=== PATIENT | female | born 1960 | race Caucasian/White ===

== ENCOUNTER 2016-10-22 16:37 | Emergency (ER) | payer MEDICAID ==
[~2016-10-22] VITALS: Ht 162.6 cm; Wt 60.0 kg
[~2016-10-22 16:37] MED LIST: 1-ME1LIQ PO; CIPR500T2 PO; HYDR-3533 PO; KCL20 PO; LISI20 PO; LORTA5 PO; METR-1 PO; OMEP20TA39 PO; PERI8.6T PO
[2016-10-22 16:39] VITALS: BP 119/57; PULSE 90; RESP 14; TEMP 98.4; O2SAT 95
--- NOTE | 2016-10-22 19:57 | PD ---
HPI Chief Complaint: Abdominal Pain Time Seen by Provider: 19:53 Travel History International Travel<30 days: No Contact w/Intl Traveler<30days: No Traveled to known affect area: No History of Present Illness HPI 36-year-old female presents to the emergency department for evaluation of abdominal pain for 3 weeks. Patient states she has a history of diverticulitis as well as admitted in July. 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 She states that she had bowel movements through her vagina July. She reports this happened again 2 weeks ago, but is not currently having. However, she states she gets "air" through her vagina. Patient reports right sided abdominal pain. She reports associated nausea and 3 axes of diarrhea today. She denies any blood in her stool. Patient has had subjective fevers at home. No chest pain or shortness of breath. She does report history of hysterectomy, oophorectomy, appendectomy. Patient does state that she saw a business continuity planning director, Dr. Cantu, today in [place], but he did not take her insurance and she is referred to the emergency department. Her primary care physician is Dr. Pruitt. [facility] Past Medical History Anxiety: Yes Cardiovascular Problems: Yes Diminished Hearing: No Hiatal Hernia: Yes Hypertension: Yes Psychiatric: Yes Seizures: Yes Ulcer: Yes : 3 Para: 2 Miscarriage: 0 : 1 Ovarian Cysts: Yes Past Surgical History Appendectomy: Yes (1982) Gynecologic Surgery: Yes (right ovary removed) Hysterectomy: Yes Social History Alcohol Use: Yes (social) Tobacco Use: Yes (09/08) Substance Use: No Allergies-Medications (Allergen,Severity, Reaction): Coded Allergies: Codeine (Verified Allergy, Severe, Nausea/Vomiting, 10/22/16) Reported Meds & Prescriptions Reported Meds & Active Scripts Active Acetaminophen Extra Strength (Acetaminophen) 500 Mg Tab 500 Mg PO Q6H PRN Bactrim DS (Sulfamethoxazole-Trimethoprim) 800-160 Mg Tab 1 Tab PO BID Reported Omeprazole 20 Mg Tab 20 Mg PO DAILY Lisinopril 5 Mg Tab 5 Mg PO DAILY Trazodone (Trazodone HCl) 50 Mg Tab 50 Mg PO HS Celebrex (Celecoxib) 100 Mg Cap 100 Mg PO BID [isuprel] 1 Tab PO DAILY Review of Systems Except as stated in HPI: all other systems reviewed are Neg Physical Exam Narrative GENERAL: Well-developed well-nourished female patient, ambulatory. Afebrile. SKIN: Warm and dry. HEAD: Normocephalic. Atraumatic. EYES: No scleral icterus. No injection or drainage. NECK: Supple, trachea midline. No JVD or lymphadenopathy. CARDIOVASCULAR: Regular rate and rhythm without murmurs, gallops, or rubs. RESPIRATORY: Breath sounds equal bilaterally. No accessory muscle use. Lungs sounds are clear to auscultation. GASTROINTESTINAL: Abdomen soft and nondistended. Patient has tenderness over right upper, right lower quadrant, and suprapubic region. MUSCULOSKELETAL: No cyanosis, or edema. BACK: Nontender without obvious deformity. No CVA tenderness. Data Data Last Documented VS Vital Signs Date Time Temp Pulse Resp B/P Pulse Ox O2 Delivery O2 Flow Rate FiO2 10/22/16 23:30 76 18 140/93 97 Room Air 10/22/16 16:39 98.4 Orders Complete Blood Count With Diff (10/22/16 19:52) Comprehensive Metabolic Panel (10/22/16 19:52) Lipase (10/22/16 19:52) Urinalysis - C+S If Indicated (10/22/16 19:52) Ketorolac Inj (Toradol Inj) (10/22/16 23:45) Ondansetron Inj (Zofran Inj) (10/22/16 23:45) Sodium Chlor 0.9% 1000 Ml Inj (Ns 1000 M (10/22/16 23:45) Ceftriaxone Inj (Rocephin Inj) (10/22/16 23:45) Ct Abd/Pel W Iv Contrast(Rout) (10/23/16 ) Iohexol 350 Inj (Omnipaque 350 Inj) (10/23/16 01:17) Labs Laboratory Tests Test 10/22/16 10/22/16 20:00 20:05 White Blood Count 10.5 TH/MM3 Red Blood Count 4.17 MIL/MM3 Hemoglobin 13.1 GM/DL Hematocrit 38.2 % Mean Corpuscular Volume 91.8 FL Mean Corpuscular Hemoglobin 31.5 PG Mean Corpuscular Hemoglobin 34.3 % Concent Red Cell Distribution Width 13.1 % Platelet Count 269 TH/MM3 Mean Platelet Volume 9.0 FL Neutrophils (%) (Auto) 58.2 % Lymphocytes (%) (Auto) 29.7 % Monocytes (%) (Auto) 8.5 % Eosinophils (%) (Auto) 2.9 % Basophils (%) (Auto) 0.7 % Neutrophils # (Auto) 6.1 TH/MM3 Lymphocytes # (Auto) 3.1 TH/MM3 Monocytes # (Auto) 0.9 TH/MM3 Eosinophils # (Auto) 0.3 TH/MM3 Basophils # (Auto) 0.1 TH/MM3 CBC Comment DIFF FINAL Differential Comment Sodium Level 134 MEQ/L Potassium Level 3.9 MEQ/L Chloride Level 104 MEQ/L Carbon Dioxide Level 21.7 MEQ/L Anion Gap 8 MEQ/L Blood Urea Nitrogen 22 MG/DL Creatinine 0.83 MG/DL Estimat Glomerular Filtration 71 ML/MIN Rate Random Glucose 104 MG/DL Calcium Level 8.7 MG/DL Total Bilirubin 0.5 MG/DL Aspartate Amino Transf 16 U/L (AST/SGOT) Alanine Aminotransferase 23 U/L (ALT/SGPT) Alkaline Phosphatase 70 U/L Total Protein 7.9 GM/DL Albumin 3.8 GM/DL Lipase 158 U/L Urine Color YELLOW Urine Turbidity CLEAR Urine pH 5.0 Urine Specific [place] 1.016 Urine Protein NEG mg/dL Urine Glucose (UA) NEG mg/dL Urine Ketones NEG mg/dL Urine Occult Blood NEG Urine Nitrite NEG Urine Bilirubin NEG Urine Urobilinogen LESS THAN 2.0 MG/DL Urine Leukocyte Esterase LARGE Urine RBC LESS THAN 1 /hpf Urine WBC 3 /hpf Urine Squamous Epithelial 1 /hpf Cells Urine Bacteria RARE /hpf Microscopic Urinalysis Comment CULT NOT INDICATED MDM Medical Decision Making Medical Screen Exam Complete: Yes Emergency Medical Condition: Yes Medical Record Reviewed: Yes Differential Diagnosis Acute diverticulitis versus cholelithiasis versus gastroenteritis versus UTI versus pyelonephritis Narrative Course 36-year-old female presents to the emergency department for evaluation of abdominal pain for 3 weeks. CBC, CMP, lipase, UA are ordered. Workup is initiated in triage. Once a medical bed becomes available, patient will be transferred and care assumed by that provider. Scripts Acetaminophen (Acetaminophen Extra Strength)500 Mg [id number] Mg PO Q6H PRN (PAIN SCALE 1 TO 4) #20 TAB Ref 0 Prov:Kim Dugan DO 10/23/16 Sulfamethoxazole-Trimethoprim (Bactrim DS)800-160 Mg Tab1 Tab PO BID #14 TAB Ref 0 Prov:Kim Dugan DO 10/23/16 Tracy Bee Oct 22, 2016 19:57
[2016-10-22 20:30] LABS: AUTOMATED NEUTROPHIL # 6.1 TH/MM3 (1.8-7.7); BASOPHIL # 0.1 TH/MM3 (0-0.2); BASOPHIL % 0.7 % (0.0-2.0); EOSINOPHIL # 0.3 TH/MM3 (0-0.4); EOSINOPHIL % 2.9 % (0.0-4.0); HEMATOCRIT 38.2 % (35.0-46.0); HEMO FLAGS DIFF FINAL; LYMPH % 29.7 % (9.0-44.0); LYMPHOCYTE # 3.1 TH/MM3 (1.0-4.8); MEAN CELL VOLUME 91.8 FL (80.0-100.0); MEAN CORPUSCULAR HEMOGLOBIN 31.5 PG (27.0-34.0); MEAN CORPUSCULAR HGB CONC 34.3 % (32.0-36.0); MONO % 8.5 % (0.0-8.0); NEUT % 58.2 % (16.0-70.0); PLATELET COUNT 269 TH/MM3 (150-450); RED BLOOD COUNT 4.17 MIL/MM3 (4.00-5.30); RED CELL DISTRIBUTION WIDTH 13.1 % (11.6-17.2); WHITE BLOOD COUNT 10.5 TH/MM3 (4.0-11.0)
[2016-10-22 20:54] LABS: BACTERIA, URINE RARE /hpf; BLOOD, URINE NEG (NEG); COMMENT (UR) CULT NOT INDICATED; CULTURE IF INDICATED CULT NOT INDICATED; GLUCOSE,URINE NEG (NEG); KETONE, URINE NEG (NEG); NITRITE,URINE NEG (NEG); SQUAMOUS EPITHELIAL CELL URINE 1 /hpf (0-5); URINE COLOR YELLOW (YELLW/STRAW)
[2016-10-22 21:02] LABS: ANION GAP 8 MEQ/L (5-15); AST (GOT) 16 U/L (15-37); BICARBONATE 21.7 MEQ/L (21.0-32.0); BLOOD UREA NITROGEN 22 MG/DL (7-18); CHLORIDE 104 MEQ/L (98-107); GLOMERULAR FILTRATION RATE 71 ML/MIN (>89); POTASSIUM 3.9 MEQ/L (3.5-5.1); SODIUM (NA) 134 MEQ/L (136-145)
[2016-10-22 21:05] LABS: ALKALINE PHOSPHATASE 70 U/L (45-117); ALT (GPT) 23 U/L (10-53); TOTAL BILIRUBIN ADULT 0.5 MG/DL (0.2-1.0)
[2016-10-22 22:39] VITALS: BP 142/76; PULSE 78; RESP 18; O2SAT 97
[2016-10-22 23:30] VITALS: BP 140/93; PULSE 76; RESP 18; O2SAT 97
[2016-10-22] MEDS ORDERED: LISI-515 PO (23:35)
[2016-10-22] MEDS ORDERED: ISOPROTERENOL PO (23:35)
[2016-10-22] MEDS ORDERED: CELE100C PO (23:35)
[2016-10-22] MEDS ORDERED: LISI-519 PO (23:35)
[2016-10-22] MEDS ORDERED: TRAZ50TA12 PO (23:35)
[2016-10-22] MEDS ORDERED: OMEP20TA PO (23:36)
--- NOTE | 2016-10-22 23:39 | PD ---
HPI Chief Complaint: Abdominal Pain Time Seen by Provider: 23:24 Travel History International Travel<30 days: No Contact w/Intl Traveler<30days: No Traveled to known affect area: No History of Present Illness HPI 56yo F with PMH of hysterectomy presents to the ED with c/o abdominal pain for 3 weeks. States it is mainly right sided from right flank to right abdomen. + NBNB vomiting and nonbloody diarrhea for a few days. Denies any fever, chest pain, sob, vaginal bleeding or discharge. +Increased urinary frequency. Pt went to see GI as outpatient today and will have a colonoscopy as outpatient. States she was sent here for further evaluation of her abdominal pain. PFSH Past Medical History Anxiety: Yes Cardiovascular Problems: Yes Diminished Hearing: No Hiatal Hernia: Yes Hypertension: Yes Psychiatric: Yes Immunizations Current: Yes Seizures: Yes Ulcer: Yes : 3 Para: 2 Miscarriage: 0 : 1 Ovarian Cysts: Yes Past Surgical History Appendectomy: Yes (1982) Gynecologic Surgery: Yes (right ovary removed) Hysterectomy: Yes (partial) Social History Alcohol Use: Yes (social) Tobacco Use: Yes (09/08) Substance Use: No Allergies-Medications (Allergen,Severity, Reaction): Coded Allergies: Codeine (Verified Allergy, Severe, Nausea/Vomiting, 10/22/16) Reported Meds & Prescriptions Reported Meds & Active Scripts Active Reported Omeprazole 20 Mg Tab 20 Mg PO DAILY Lisinopril 5 Mg Tab 5 Mg PO DAILY Trazodone (Trazodone HCl) 50 Mg Tab 50 Mg PO HS Celebrex (Celecoxib) 100 Mg Cap 100 Mg PO BID [isuprel] 1 Tab PO DAILY Review of Systems Except as stated in HPI: all other systems reviewed are Neg Physical Exam Narrative GENERAL: 56yo F not in distress. SKIN: Warm and dry. HEAD: Atraumatic. Normocephalic. NECK: Trachea midline. No JVD. CARDIOVASCULAR: Regular rate and rhythm. No murmur appreciated. RESPIRATORY: No accessory muscle use. Clear to auscultation. Breath sounds equal bilaterally. GASTROINTESTINAL: Abdomen soft, +TTP RLQ. No rebound tenderness or guarding. BACK: +CVA tenderness on right. MUSCULOSKELETAL: No obvious deformities. No clubbing. No cyanosis. No edema. NEUROLOGICAL: Awake and alert. No obvious cranial nerve deficits. Motor grossly within normal limits. Normal speech. PSYCHIATRIC: Appropriate mood and affect; insight and judgment normal. Data Data Last Documented VS Vital Signs Date Time Temp Pulse Resp B/P Pulse Ox O2 Delivery O2 Flow Rate FiO2 10/22/16 23:30 76 18 140/93 97 Room Air 10/22/16 16:39 98.4 Orders Complete Blood Count With Diff (10/22/16 19:52) Comprehensive Metabolic Panel (10/22/16 19:52) Lipase (10/22/16 19:52) Urinalysis - C+S If Indicated (10/22/16 19:52) Ketorolac Inj (Toradol Inj) (10/22/16 23:45) Ondansetron Inj (Zofran Inj) (10/22/16 23:45) Sodium Chlor 0.9% 1000 Ml Inj (Ns 1000 M (10/22/16 23:45) Ceftriaxone Inj (Rocephin Inj) (10/22/16 23:45) Ct Abd/Pel W Iv Contrast(Rout) (10/23/16 ) Iohexol 350 Inj (Omnipaque 350 Inj) (10/23/16 01:17) Labs Laboratory Tests Test 10/22/16 10/22/16 20:00 20:05 White Blood Count 10.5 TH/MM3 Red Blood Count 4.17 MIL/MM3 Hemoglobin 13.1 GM/DL Hematocrit 38.2 % Mean Corpuscular Volume 91.8 FL Mean Corpuscular Hemoglobin 31.5 PG Mean Corpuscular Hemoglobin 34.3 % Concent Red Cell Distribution Width 13.1 % Platelet Count 269 TH/MM3 Mean Platelet Volume 9.0 FL Neutrophils (%) (Auto) 58.2 % Lymphocytes (%) (Auto) 29.7 % Monocytes (%) (Auto) 8.5 % Eosinophils (%) (Auto) 2.9 % Basophils (%) (Auto) 0.7 % Neutrophils # (Auto) 6.1 TH/MM3 Lymphocytes # (Auto) 3.1 TH/MM3 Monocytes # (Auto) 0.9 TH/MM3 Eosinophils # (Auto) 0.3 TH/MM3 Basophils # (Auto) 0.1 TH/MM3 CBC Comment DIFF FINAL Differential Comment Sodium Level 134 MEQ/L Potassium Level 3.9 MEQ/L Chloride Level 104 MEQ/L Carbon Dioxide Level 21.7 MEQ/L Anion Gap 8 MEQ/L Blood Urea Nitrogen 22 MG/DL Creatinine 0.83 MG/DL Estimat Glomerular Filtration 71 ML/MIN Rate Random Glucose 104 MG/DL Calcium Level 8.7 MG/DL Total Bilirubin 0.5 MG/DL Aspartate Amino Transf 16 U/L (AST/SGOT) Alanine Aminotransferase 23 U/L (ALT/SGPT) Alkaline Phosphatase 70 U/L Total Protein 7.9 GM/DL Albumin 3.8 GM/DL Lipase 158 U/L Urine Color YELLOW Urine Turbidity CLEAR Urine pH 5.0 Urine Specific [place] 1.016 Urine Protein NEG mg/dL Urine Glucose (UA) NEG mg/dL Urine Ketones NEG mg/dL Urine Occult Blood NEG Urine Nitrite NEG Urine Bilirubin NEG Urine Urobilinogen LESS THAN 2.0 MG/DL Urine Leukocyte Esterase LARGE Urine RBC LESS THAN 1 /hpf Urine WBC 3 /hpf Urine Squamous Epithelial 1 /hpf Cells Urine Bacteria RARE /hpf Microscopic Urinalysis Comment CULT NOT INDICATED MDM Medical Decision Making Medical Screen Exam Complete: Yes Emergency Medical Condition: Yes Interpretation(s) Laboratory Tests Test 10/22/16 10/22/16 20:00 20:05 White Blood Count 10.5 TH/MM3 (4.0-11.0) Red Blood Count 4.17 MIL/MM3 (4.00-5.30) Hemoglobin 13.1 GM/DL (11.6-15.3) Hematocrit 38.2 % (35.0-46.0) Mean Corpuscular Volume 91.8 FL (80.0-100.0) Mean Corpuscular Hemoglobin 31.5 PG (27.0-34.0) Mean Corpuscular Hemoglobin 34.3 % Concent (32.0-36.0) Red Cell Distribution Width 13.1 % (11.6-17.2) Platelet Count 269 TH/MM3 (150-450) Mean Platelet Volume 9.0 FL (7.0-11.0) Neutrophils (%) (Auto) 58.2 % (16.0-70.0) Lymphocytes (%) (Auto) 29.7 % (9.0-44.0) Monocytes (%) (Auto) 8.5 % (0.0-8.0) Eosinophils (%) (Auto) 2.9 % (0.0-4.0) Basophils (%) (Auto) 0.7 % (0.0-2.0) Neutrophils # (Auto) 6.1 TH/MM3 (1.8-7.7) Lymphocytes # (Auto) 3.1 TH/MM3 (1.0-4.8) Monocytes # (Auto) 0.9 TH/MM3 (0-0.9) Eosinophils # (Auto) 0.3 TH/MM3 (0-0.4) Basophils # (Auto) 0.1 TH/MM3 (0-0.2) CBC Comment DIFF FINAL Differential Comment Sodium Level 134 MEQ/L (136-145) Potassium Level 3.9 MEQ/L (3.5-5.1) Chloride Level 104 MEQ/L (98-107) Carbon Dioxide Level 21.7 MEQ/L (21.0-32.0) Anion Gap 8 MEQ/L (5-15) Blood Urea Nitrogen 22 MG/DL (7-18) Creatinine 0.83 MG/DL (0.50-1.00) Estimat Glomerular Filtration 71 ML/MIN (>89) Rate Random Glucose 104 MG/DL (74-106) Calcium Level 8.7 MG/DL (8.5-10.1) Total Bilirubin 0.5 MG/DL (0.2-1.0) Aspartate Amino Transf 16 U/L (15-37) (AST/SGOT) Alanine Aminotransferase 23 U/L (10-53) (ALT/SGPT) Alkaline Phosphatase 70 U/L (45-117) Total Protein 7.9 GM/DL (6.4-8.2) Albumin 3.8 GM/DL (3.4-5.0) Lipase 158 U/L (73-393) Urine Color YELLOW (YELLW/STRAW) Urine Turbidity CLEAR (CLEAR) Urine pH 5.0 (5.0-8.5) Urine Specific [place] 1.016 (1.002-1.035) Urine Protein NEG mg/dL (NEG-TRACE) Urine Glucose (UA) NEG mg/dL (NEG) Urine Ketones NEG mg/dL (NEG) Urine Occult Blood NEG (NEG) Urine Nitrite NEG (NEG) Urine Bilirubin NEG (NEG) Urine Urobilinogen LESS THAN 2.0 MG/DL (LESS THAN 2.0) Urine Leukocyte Esterase LARGE (NEG) Urine RBC LESS THAN 1 /hpf (0-3) Urine WBC 3 /hpf (0-5) Urine Squamous Epithelial 1 /hpf (0-5) Cells Urine Bacteria RARE /hpf (NONE) Microscopic Urinalysis Comment CULT NOT INDICATED Last Impressions Abdomen/Pelvis CT 10/23/16 0000 Signed Impressions: Service Date/Time: October 01:11 - CONCLUSION: 1. No evidence of acute abdominal or pelvic process. No masses are identified. 2. Diverticulosis without evidence of diverticulitis. 3. Jose Thao MD Differential Diagnosis Pyelonephritis vs. nephrolithiasis vs. appendicitis vs. gastroenteritis Narrative Course 56yo F with abdominal pain and urinary complaints. Pt is well appearing with mild ttp on abdominal exam. Labs reviewed, no leukocytosis. Creatinine normal. BUN mildly elevated. UA showed large leukocyte. Rare bacteria. Pt given NS IVF, zofran, and toradol 30mg IV. CTa/p showed no evidence of acute abdominal or pelvic process. No masses are identified. Pt reevaluated at bedside, abdominal pain resolved. Abd: soft, NT/ND. Return precautions given. Diagnosis Primary Impression: UTI (urinary tract infection) Qualified Code: N39.0 - Urinary tract infection without hematuria, site unspecified Patient Instructions: General Instructions Departure Forms: Tests/Procedures Additional Instructions: Please follow up with your PMD in 3-7 days. Return to the ED if your symptoms worsen. Med/Other Pt SpecificInfo: Prescription(s) given Scripts Acetaminophen (Acetaminophen Extra Strength)500 Mg [id number] Mg PO Q6H PRN (PAIN SCALE 1 TO 4) #20 TAB Ref 0 Prov:RitchieKim 10/23/16 Sulfamethoxazole-Trimethoprim (Bactrim DS)800-160 Mg Tab1 Tab PO BID #14 TAB Ref 0 Prov:Kim Dugan DO 10/23/16 Disposition: 01 DISCHARGE HOME Condition: Stable Kim Dugan Oct 22, 2016 23:39
[2016-10-22] MEDS ORDERED: SODIUM CHLOR 0.9% 1000 ML INJ 1,000 ML IV ONE (23:45)
[2016-10-22] MEDS ORDERED: ONDANSETRON HCL 4 MG/2 ML VIAL IV PUSH ONE (23:45)
[2016-10-22] MEDS ORDERED: KETOROLAC TROMETHAMINE 30 MG/ML (IVP) VIAL IV PUSH ONE (23:45)
[2016-10-22] MEDS ORDERED: cefTRIAXone INJ 1,000 MG in SODIUM CHLORIDE 0.9% INJ 100 ML IV ONE (23:45)
[2016-10-23] MEDS ORDERED: IOHEXOL 350 MG/ML 10 ML VIAL (for RAD DIAG) IV ONE (01:17)
--- NOTE | 2016-10-23 01:45 | RADRPT ---
EXAM DATE/TIME: 10/23/2016 01:11 [facility] COMPARISON: CT ABDOMEN & PELVIS W CONTRAST, June 04, 2016, 13:55. INDICATIONS : Abdomen pain with nausea and vomiting. IV CONTRAST: 93 cc Omnipaque 350 (iohexol) IV ORAL CONTRAST: No oral contrast ingested. RADIATION DOSE: 8.13 CTDIvol (mGy) MEDICAL HISTORY : Cardiovascular disease. Hypertension. Diverticulitis.Hiatal Hernia SURGICAL HISTORY : Appendectomy. Hysterectomy. ENCOUNTER: Initial ACUITY: 1 day PAIN SCALE: 7/10 LOCATION: Right abdomen TECHNIQUE: Volumetric scanning of the abdomen and pelvis was performed. Using automated exposure control and ad justment of the mA and/or kV according to patient size, radiation dose was kept as low as reasonably achievable to obtain optimal diagnostic quality images. FINDINGS: There is subsegmental atelectasis in the both bases. Coronary artery calcifications are present. The gallbladder and pancreas are unremarkable. No intrahepatic or extrahepatic ductal dilatation is seen . The adrenal glands and kidneys appear normal bilaterally. No hydronephrosis or mass lesions are donovan ntified. A small fat containing midline hernias present measuring 10 mm. Examination of the pelvis demonstrates no evidence of free fluid or pelvic mass. No abnormally enlarg ed inguinal or retroperitoneal lymph nodes are present. The bladder is unremarkable. There is diverti culosis without evidence of diverticulitis. CONCLUSION: 1. No evidence of acute abdominal or pelvic process. No masses are identified. 2. Diverticulosis without evidence of diverticulitis. 3. Jose Thao MD on October 23, 2016 at 1:40 Board Certified Radiologist. This report was verified electronically.
[2016-10-23] MEDS ORDERED: BACT800T5 PO (02:22)
[2016-10-23] MEDS ORDERED: ACET500T36 PO (02:22)
== END 2016-10-23 02:58 | disposition home or self-care (01) ==
LOC: NEPC 16:37
DX: N39.0 Urinary tract infection, site not specified (principal)
CPT/HCPCS: 74177; 80053; 81001; 83690; 85025; 96374; 96375; 99284; J0696; J1885; J2405; J7030; Q9967

== ENCOUNTER 2017-06-20 14:12 | Emergency (ER) | payer MEDICAID ==
[~2017-06-20] VITALS: Ht 162.6 cm; Wt 73.0 kg
[~2017-06-20 14:12] MED LIST changes: -1-ME1LIQ PO; +ACET500T36 PO; +BACT800T5 PO; +CELE100C PO; -CIPR500T2 PO; -HYDR-3533 PO; +ISOPROTERENOL PO; -KCL20 PO; +LISI-519 PO; -LISI20 PO; -LORTA5 PO; -METR-1 PO; +OMEP20TA PO; -OMEP20TA39 PO; -PERI8.6T PO; +TRAZ50TA12 PO
[2017-06-20 14:17] VITALS: BP 171/96; PULSE 87; RESP 18; TEMP 98.5; O2SAT 99
[2017-06-20 14:21] VITALS: BP 171/96; PULSE 88; RESP 18; TEMP 98.5; O2SAT 98
[2017-06-20] MEDS ORDERED: SODIUM CHLOR 0.9% 1000 ML INJ 1,000 ML IV SCH (14:23)
[2017-06-20 14:26] VITALS: O2SAT 99
[2017-06-20] MEDS ORDERED: SODIUM CHLORIDE 0.9% FLUSH 10 ML FLUSH IV FLUSH PRN (14:30)
[2017-06-20] MEDS ORDERED: MORPHINE SULFATE 4 MG/ML INJ IV PUSH ONE (14:30)
[2017-06-20] MEDS ORDERED: ONDANSETRON HCL 4 MG/2 ML VIAL IVP ONE (14:30)
--- NOTE | 2017-06-20 14:31 | PD ---
HPI Chief Complaint: Abdominal Pain Time Seen by Provider: 14:13 Travel History International Travel<30 days: No Contact w/Intl Traveler<30days: No Traveled to known affect area: No History of Present Illness HPI 56-year-old female presents to the emergency department via EMS for evaluation of abdominal pain. Patient states she's had intermittent abdominal pain, vomiting, constipation for the past 4 months. She saw a primary care physician Dr. Pruitt, who referred her to a business services administrator, Dr. Porter in [place]. She has an appointment later this month, but states she cannot take the pain. Patient states the pain is currently 8/10 in the epigastric, periumbilical region. She states that this typically where and how high her pain will get. She states she vomited once this morning. She also reports that she has been constipated, has noticed small amount of bright red blood in her stool. She also states that when she vomited, she noticed some mucus with specks of blood. Patient denies any fevers or chills. She denies any chest pain. She reports the pain will make her short of breath. 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 No other surgeries. She denies any urinary symptoms. She reports history of GERD, hypertension, diverticulitis. Patient does state that she drinks "one tallboy" every evening. She smokes one pack of cigarettes daily. No illicit drug use. PFSH Past Medical History Anxiety: Yes Cardiovascular Problems: Yes Diminished Hearing: No Hiatal Hernia: Yes Hypertension: Yes Psychiatric: Yes Immunizations Current: Yes Seizures: Yes Ulcer: Yes ?: Not : 3 Para: 2 Miscarriage: 0 : 1 Ovarian Cysts: Yes Past Surgical History Appendectomy: Yes (1982) Gynecologic Surgery: Yes (right ovary removed) Hysterectomy: Yes Social History Alcohol Use: Yes (social) Tobacco Use: Yes (09/08) Substance Use: No Allergies-Medications (Allergen,Severity, Reaction): Coded Allergies: codeine (Unverified Allergy, Severe, Nausea/Vomiting, 04/21/17) Reported Meds & Prescriptions Reported Meds & Active Scripts Active Acetaminophen Extra Strength (Acetaminophen) 500 Mg Tab 500 Mg PO Q6H PRN Bactrim DS (Sulfamethoxazole-Trimethoprim) 800-160 Mg Tab 1 Tab PO BID Reported Omeprazole 20 Mg Tab 20 Mg PO DAILY Lisinopril 5 Mg Tab 5 Mg PO DAILY Trazodone (Trazodone HCl) 50 Mg Tab 50 Mg PO HS Celebrex (Celecoxib) 100 Mg Cap 100 Mg PO BID [isuprel] 1 Tab PO DAILY Review of Systems Except as stated in HPI: all other systems reviewed are Neg Physical Exam Narrative GENERAL: Well-nourished, well-developed female patient, ambulatory. Afebrile. SKIN: Focused skin assessment warm/dry. Large midline abdominal scar noted. HEAD: Normocephalic. Atraumatic. EYES: No scleral icterus. No injection or drainage. NECK: Supple, trachea midline. No JVD or lymphadenopathy. CARDIOVASCULAR: Regular rate and rhythm without murmurs, gallops, or rubs. Bilateral radial and pedal pulses are 2+ RESPIRATORY: Breath sounds equal bilaterally. No accessory muscle use. Lungs sounds are clear to auscultation. GASTROINTESTINAL: Abdomen soft and nondistended. Patient has tenderness over the epigastric and periumbilical region. MUSCULOSKELETAL: No cyanosis, or edema. BACK: Nontender without obvious deformity. No CVA tenderness. RECTAL EXAM: No masses or tenderness, stool is brown. Hemoccult is negative. This exam was done with RN at bedside. Data Data Last Documented VS Vital Signs Date Time Temp Pulse Resp B/P (MAP) Pulse Ox O2 Delivery O2 Flow Rate FiO2 06/20/17 15:01 18 06/20/17 14:26 99 Room Air 06/20/17 14:21 98.5 88 Orders Orders Complete Blood Count With Diff (06/20/17 14:23) Comprehensive Metabolic Panel (06/20/17 14:23) Lipase (06/20/17 14:23) Prothrombin Time / Inr (Pt) (06/20/17 14:23) Act Partial Throm Time (Ptt) (06/20/17 14:23) Urinalysis - C+S If Indicated (06/20/17 14:23) Ct Abd/Pel W Iv Contrast(Rout) (06/20/17 14:23) Iv Access Insert/Monitor (06/20/17 14:23) Ecg Monitoring (06/20/17 14:23) Oximetry (06/20/17 14:23) Morphine Inj (Morphine Inj) (06/20/17 14:30) Ondansetron Inj (Zofran Inj) (06/20/17 14:30) Sodium Chlor 0.9% 1000 Ml Inj (Ns 1000 M (06/20/17 14:23) Sodium Chloride 0.9% Flush (Ns Flush) (06/20/17 14:30) Electrocardiogram (06/20/17 14:23) Chest, Single Ap (06/20/17 14:23) Iohexol 350 Inj (Omnipaque 350 Inj) (06/20/17 15:44) Labs Laboratory Tests Test 06/20/17 14:30 06/20/17 14:55 White Blood Count 8.0 TH/MM3 Red Blood Count 3.88 MIL/MM3 Hemoglobin 12.3 GM/DL Hematocrit 36.3 % Mean Corpuscular Volume 93.6 FL Mean Corpuscular Hemoglobin 31.6 PG Mean Corpuscular Hemoglobin Concent 33.8 % Red Cell Distribution Width 13.0 % Platelet Count 249 TH/MM3 Mean Platelet Volume 8.2 FL Neutrophils (%) (Auto) 52.0 % Lymphocytes (%) (Auto) 34.9 % Monocytes (%) (Auto) 8.1 % Eosinophils (%) (Auto) 3.9 % Basophils (%) (Auto) 1.1 % Neutrophils # (Auto) 4.1 TH/MM3 Lymphocytes # (Auto) 2.8 TH/MM3 Monocytes # (Auto) 0.6 TH/MM3 Eosinophils # (Auto) 0.3 TH/MM3 Basophils # (Auto) 0.1 TH/MM3 CBC Comment DIFF FINAL Differential Comment Prothrombin Time 10.1 SEC Prothromb Time International Ratio 0.9 RATIO Activated Partial Thromboplast Time 24.3 SEC Blood Urea Nitrogen 15 MG/DL Creatinine 0.65 MG/DL Random Glucose 86 MG/DL Total Protein 7.7 GM/DL Albumin 3.5 GM/DL Calcium Level 8.0 MG/DL Alkaline Phosphatase 65 U/L Aspartate Amino Transf (AST/SGOT) 39 U/L Alanine Aminotransferase (ALT/SGPT) 42 U/L Total Bilirubin 0.1 MG/DL Sodium Level 138 MEQ/L Potassium Level 4.5 MEQ/L Chloride Level 106 MEQ/L Carbon Dioxide Level 25.3 MEQ/L Anion Gap 7 MEQ/L Estimat Glomerular Filtration Rate 94 ML/MIN Lipase 130 U/L Urine Color YELLOW Urine Turbidity CLEAR Urine pH 6.0 Urine Specific [place] 1.019 Urine Protein NEG mg/dL Urine Glucose (UA) NEG mg/dL Urine Ketones NEG mg/dL Urine Occult Blood NEG Urine Nitrite NEG Urine Bilirubin NEG Urine Urobilinogen LESS THAN 2.0 MG/DL Urine Leukocyte Esterase NEG Urine WBC LESS THAN 1 /hpf Urine Mucus FEW /lpf Microscopic Urinalysis Comment CULT NOT INDICATED MDM Medical Decision Making Medical Screen Exam Complete: Yes Emergency Medical Condition: Yes Medical Record Reviewed: Yes Interpretation(s) chest x-ray - CONCLUSION: 1. No acute cardiopulmonary disease. CT abdomen/pelvis- CONCLUSION: 1. No evidence of acute abdominal or pelvic process. No masses are identified. 2. Diverticulosis without evidence of diverticulitis. Differential Diagnosis Diverticulitis versus pancreatitis versus cholecystitis versus UTI versus small bowel obstruction versus chronic abdominal pain versus GI bleed Narrative Course 56-year-old female presents to the emergency department for evaluation of abdominal pain, nausea, vomiting, diarrhea that has been ongoing for 4 months. She does have an appointment upcoming with a business services administrator. She also reports shortness of breath due to pain. EKG, CBC, CMP, lipase, PTT, PT/INR, UA are ordered and pending. CT abdomen/pelvis with IV contrast is ordered and pending. Chest x-ray is ordered and pending. IV access established. Patient is given normal saline 1 L IV bolus, morphine 4 mg IV, Zofran 4 mg IV. EKG shows sinus rhythm, no acute ST changes. CBC shows no acute abnormalities. CMP shows no acute abnormality. Lipase is 130. Coags shows no acute abnormality. UA is negative for acute infection. CT abdomen/pelvis shows No evidence of acute abdominal or pelvic process. No masses are identified; Diverticulosis without evidence of diverticulitis.. Chest x-ray shows no acute cardiopulmonary disease. I discussed results with patient. She takes omeprazole at home. I'll discharge her prescription for Zofran. She is encouraged to keep her upcoming appointment gastroenterology. Patient has had these symptoms ongoing for 4 months. She verbalizes agreement to this. Diagnosis Primary Impression: Abdominal pain Qualified Codes: R10.13 - Epigastric pain Referrals: Hydrometallurgical Engineer Primary Care Physician Patient Instructions: Abdominal Pain (ED), General Instructions Additional Instructions: Take Zofran as directed as needed for nausea/vomiting. Continue taking omeprazole. Follow-up with business services administrator and primary care physician. Return to the emergency department for any acute worsening of symptoms. Med/Other Pt SpecificInfo: Prescription(s) given Scripts Ondansetron Odt (Ondansetron Odt) 4 Mg Tab 4 MG SL Q6HR Y for Nausea/Vomiting, #16 TAB 0 Refills Prov: Tracy Bee 06/20/17 Disposition: 01 DISCHARGE HOME Condition: Stable Tracy Bee Jun 20, 2017 14:31
[2017-06-20 14:47] LABS: AUTOMATED NEUTROPHIL # 4.1 TH/MM3 (1.8-7.7); BASOPHIL # 0.1 TH/MM3 (0-0.2); BASOPHIL % 1.1 % (0.0-2.0); EOSINOPHIL # 0.3 TH/MM3 (0-0.4); EOSINOPHIL % 3.9 % (0.0-4.0); HEMATOCRIT 36.3 % (35.0-46.0); HEMO FLAGS DIFF FINAL; LYMPH % 34.9 % (9.0-44.0); LYMPHOCYTE # 2.8 TH/MM3 (1.0-4.8); MEAN CELL VOLUME 93.6 FL (80.0-100.0); MEAN CORPUSCULAR HEMOGLOBIN 31.6 PG (27.0-34.0); MEAN CORPUSCULAR HGB CONC 33.8 % (32.0-36.0); MONO % 8.1 % (0.0-8.0); PLATELET COUNT 249 TH/MM3 (150-450); RED BLOOD COUNT 3.88 MIL/MM3 (4.00-5.30)
[2017-06-20 15:01] VITALS: RESP 18
[2017-06-20 15:11] LABS: ALKALINE PHOSPHATASE 65 U/L (45-117); ALT (GPT) 42 U/L (10-53); ANION GAP 7 MEQ/L (5-15); AST (GOT) 39 U/L (15-37); BICARBONATE 25.3 MEQ/L (21.0-32.0); BLOOD UREA NITROGEN 15 MG/DL (7-18); CHLORIDE 106 MEQ/L (98-107); GLOMERULAR FILTRATION RATE 94 ML/MIN (>89); POTASSIUM 4.5 MEQ/L (3.5-5.1); SODIUM (NA) 138 MEQ/L (136-145); TOTAL BILIRUBIN ADULT 0.1 MG/DL (0.2-1.0)
[2017-06-20 15:22] LABS: APTT (PATIENT) 24.3 SEC (24.3-30.1); INTERNATIONAL NORMALIZED RATIO 0.9 RATIO; PROTHROMBIN TIME - PATIENT 10.1 SEC (9.8-11.6)
[2017-06-20 15:23] LABS: BLOOD, URINE NEG (NEG); COMMENT (UR) CULT NOT INDICATED; CULTURE IF INDICATED CULT NOT INDICATED; GLUCOSE,URINE NEG (NEG); KETONE, URINE NEG (NEG); MUCUS URINE FEW /lpf (OCC); NITRITE,URINE NEG (NEG); URINE COLOR YELLOW (YELLW/STRAW)
[2017-06-20] MEDS ORDERED: IOHEXOL 350 MG/ML 10 ML VIAL (for RAD DIAG) IVCONTRAST ONE (15:44)
--- NOTE | 2017-06-20 16:10 | RADRPT ---
EXAM DATE/TIME: 06/20/2017 14:50 [facility] COMPARISON: No previous studies available for comparison. INDICATIONS : Short of breath, vomiting, and constipation for three days. MEDICAL HISTORY : Cardiovascular disease. Hypertension. Diverticulitis.Hiatal Hernia SURGICAL HISTORY : Appendectomy. Hysterectomy ENCOUNTER: Initial ACUITY: 3 days PAIN SCORE: 8/10 LOCATION: Bilateral Abdomen FINDINGS: A single view of the chest demonstrates the lungs to be symmetrically aerated without evidence of mas s, infiltrate or effusion. The cardiomediastinal contours are unremarkable. Osseous structures are intact. CONCLUSION: 1. No acute cardiopulmonary disease. Jose Thao MD on June 20, 2017 at 16:08 Board Certified Radiologist. This report was verified electronically.
--- NOTE | 2017-06-20 16:18 | EKG ---
Date Performed: 06/20/2017 Time Performed: 14:36:00 PTAGE: 56 years EKG: Sinus rhythm NORMAL ECG No significant change from prior electrocardiogram. PREVIOUS TRACING : 06/28/2010 16.29 DOCTOR: Mich Wiggins Interpretating Date/Time 06/20/2017 16:17:01
--- NOTE | 2017-06-20 16:39 | RADRPT ---
EXAM DATE/TIME: 06/20/2017 15:45 [facility] COMPARISON: CT ABDOMEN & PELVIS W CONTRAST, October 23, 2016, 1:11. INDICATIONS : Diffuse abdominal pain with nausea, vomiting and constipation for four days. IV CONTRAST: 97 cc Omnipaque 350 (iohexol) IV ORAL CONTRAST: No oral contrast ingested. RADIATION DOSE: 13.24 CTDIvol (mGy) MEDICAL HISTORY : Hypertension. Seizures. SURGICAL HISTORY : Hysterectomy. Appendectomy. ENCOUNTER: Initial ACUITY: 4 - 6 days PAIN SCALE: 7/10 LOCATION: Bilateral abdomen TECHNIQUE: Volumetric scanning of the abdomen and pelvis was performed. Using automated exposure control and ad justment of the mA and/or kV according to patient size, radiation dose was kept as low as reasonably achievable to obtain optimal diagnostic quality images. DICOM format image data is available electro nically for review and comparison. FINDINGS: There is parenchymal scarring bilaterally. The liver and spleen are normal in size and no focal defec ts are identified. The gallbladder and pancreas are unremarkable. No intrahepatic or extrahepatic sylvia maria r dilatation is seen. The adrenal glands and kidneys appear normal bilaterally. No hydronephrosis o r mass lesions are identified. Examination of the pelvis demonstrates no evidence of free fluid or pelvic mass. No abnormally enlarg ed inguinal or retroperitoneal lymph nodes are present. The bladder is unremarkable. There is diverti culosis without evidence of diverticulitis. There is an old fracture of the left pubic symphysis. CONCLUSION: 1. No evidence of acute abdominal or pelvic process. No masses are identified. 2. Diverticulosis without evidence of diverticulitis. Jose Thao MD on June 20, 2017 at 16:34 Board Certified Radiologist. This report was verified electronically.
[2017-06-20] MEDS ORDERED: ONDA4TAB7 SL (16:47)
== END 2017-06-20 17:06 | disposition home or self-care (01) ==
LOC: NEPE 14:12
DX: R10.13 Epigastric pain (principal); K59.00 Constipation, unspecified; R11.11 Vomiting without nausea; F41.9 Anxiety disorder, unspecified; I10 Essential (primary) hypertension; F17.200 Nicotine dependence, unspecified, uncomplicated; N83.209 Unspecified ovarian cyst, unspecified side; Z79.899 Other long term (current) drug therapy
CPT/HCPCS: 71010; 74177; 80053; 81001; 83690; 85025; 85610; 85730; 93005; 96361; 96374; 96375; 99285; J2270; J2405; J7030; Q9967